=== PATIENT | female | born 1945 | race Caucasian/White ===

== ENCOUNTER 2016-09-17 11:01 | Day surgery (SDC) | payer OTHER ==
[~2016-09-17] VITALS: Ht 167.6 cm; Wt 50.0 kg
[~2016-09-17 11:01] MED LIST: ASPIRIN325 MG PO; MOTRIN600 MG PO
[2016-09-17 11:56] VITALS: BP 139/75
[2016-09-17 18:30] VITALS: BP 118/65
[2016-09-17 19:27] VITALS: BP 120/66
== END 2016-09-17 19:48 | disposition home or self-care (01) ==
LOC: SDC
DX: H33.42 Traction detachment of retina, left eye (principal); M47.22 Other spondylosis with radiculopathy, cervical region; Z79.891 Long term (current) use of opiate analgesic; Z80.0 Family history of malignant neoplasm of digestive organs
CPT/HCPCS: 84132; J0690; J1170; J2250; J2405; J3010; J3300; J7120

== ENCOUNTER 2017-09-01 16:52 | Inpatient (IN) | payer OTHER ==
[~2017-09-01] VITALS: Ht 167.6 cm; Wt 53.0 kg
[2017-09-01 17:49] LABS: HEMATOCRIT 32.3 % (36.0-46.0); HEMOGLOBIN 11.2 G/DL (11.9-15.5); MCH 30.1 PG (29.0-34.0); MCHC 34.7 G/DL (30.0-36.0); MCV 86.8 FL (83-99); PLATELET COUNT 263 K/uL (156-360); RBC DIS.WIDTH-CV 14.6 % (11.8-14.6); RBC DIS.WIDTH-SD 46.8 % (39-53); RED BLOOD COUNT 3.72 M/uL (3.80-5.20); WHITE BLOOD COUNT 10.6 K/uL (4.1-10.2)
[2017-09-01 18:05] LABS: CHLORIDE 96 mEq/L (99-109); SODIUM 135 mEq/L (136-147)
[2017-09-01 18:07] LABS: GLUCOSE 126 mg/dL (70-99)
[2017-09-01 18:11] LABS: CREATININE 2.2 mg/dL (0.6-1.3); GFR ESTIMATE (CALCULATED) 23 mL/min/
[2017-09-01 18:12] LABS: UREA NITROGEN (BUN) 47 mg/dL (9-23)
[2017-09-01 18:46] LABS: POTASSIUM 2.2 mEq/L (3.7-5.4)
[2017-09-01 20:39] LABS: TROP-I INTERPRETATION POSITIVE
[2017-09-01 20:44] LABS: TROPONIN-I 3.99 ng/mL (0.0-0.30)
[2017-09-01 21:14] LABS: APPEARANCE CLOUDY ((CLEAR)); BILIRUBIN NEGATIVE; BLOOD MODERATE; COLOR YELLOW ((YELLOW)); GLUCOSE (STRIP) NEGATIVE; KETONES NEGATIVE; LEUKOCYTES LARGE; NITRITE NEGATIVE; PROTEIN (STRIP) 30; SPECIFIC GRAVITY 1.011 (1.000-1.030); UROBILINOGEN 0.2 MG/DL (0.2-1.0)
[2017-09-01 21:29] LABS: BACTERIA RARE /HPF; EPITHELIAL CELLS 3+ /HPF; MUCUS 1+ /LPF; RED BLOOD CELLS 15-20 /HPF (0-5); UCUL ADDED? YES; WHITE BLOOD CELLS TNTC /HPF (0-5)
[2017-09-01 22:52] LABS: ALBUMIN 4.3 G/DL (3.2-4.8); ALKALINE PHOSPHATASE 57 IU/L (3-129); ALT (GPT) 36 IU/L (3-49); AST (GOT) 69 IU/L (2-34); TOTAL PROTEIN 7.3 G/DL (6.4-8.3)
[2017-09-01 22:56] LABS: CREATINE KINASE 431 IU/L (1-294); LACTATE DEHYDROGENASE 455 IU/L (20-246); SALICYLATE < 3.0 MG/DL (15-30); TOTAL BILIRUBIN 0.4 MG/DL (0.0-1.0); URIC ACID 10.3 mg/dL (3.1-9.2)
[2017-09-02 01:25] LABS: TROP-I INTERPRETATION POSITIVE
[2017-09-02 01:30] LABS: TROPONIN-I 3.21 ng/mL (0.0-0.30)
[2017-09-02 02:41] LABS: INTER. NORMALIZED RATIO 1.2
[2017-09-02 03:00] VITALS: BP 193/86
[2017-09-02 07:01] VITALS: BP 172/76
[2017-09-02 07:51] LABS: TROP-I INTERPRETATION POSITIVE; TROPONIN-I 2.89 ng/mL (0.0-0.30)
[2017-09-02 08:30] LABS: PHOSPHORUS 2.5 mg/dL (2.5-4.9)
[2017-09-02 08:43] LABS: INTACT PARATHYROID HORMONE 7 pg/mL (10-69)
[2017-09-02 08:55] LABS: THYROTROPIN (TSH) 1.2 MIU/L (0.4-5.5)
[2017-09-02 09:40] LABS: CHLORIDE 105 MEQ/L (99-109); GLUCOSE 96 mg/dL (70-99); MAGNESIUM 1.3 mg/dl (1.3-2.7); SODIUM 135 MEQ/L (136-147); UREA NITROGEN (BUN) 40 mg/dL (9-23)
[2017-09-02 09:46] LABS: CREATININE 1.5 MG/DL (0.6-1.3); GFR ESTIMATE (CALCULATED) 36 mL/min/; POTASSIUM 2.8 MEQ/L (3.7-5.4)
[2017-09-02 10:05] LABS: C-REACTIVE PROTEIN 2.3 MG/L (0-10)
[2017-09-02 10:57] VITALS: BP 131/71
[2017-09-02 11:07] LABS: URINE TOTAL PROTEIN 19 MG/DL (0-10)
[2017-09-02 11:18] LABS: A/G RATIO 1.5 (1.1-1.8); ALBUMIN 3.3 G/DL (3.4-5.0); GLOBULINS 2.2 G/DL (2.3-3.5); TOTAL PROTEIN 5.5 G/DL (6.4-8.2)
[2017-09-02 15:02] VITALS: BP 166/77
[2017-09-02 15:02] LABS: ALBUMIN 3.09 G/DL (3.6-4.9); ALPHA-1 GLOBULIN 0.31 G/DL (0.15-0.40); ALPHA-2 GLOBULIN 0.56 G/DL (0.45-0.85); BETA-GLOBULIN 0.68 G/DL (0.65-1.15); GAMMA-GLOBULIN 0.86 G/DL (0.60-1.35)
[2017-09-02 18:33] LABS: CHLORIDE 108 MEQ/L (99-109); CREATININE 1.6 MG/DL (0.6-1.3); GFR ESTIMATE (CALCULATED) 34 mL/min/; GLUCOSE 91 mg/dL (70-99); SODIUM 135 MEQ/L (136-147); UREA NITROGEN (BUN) 37 mg/dL (9-23)
[2017-09-02 19:16] VITALS: BP 170/80
[2017-09-03 01:36] LABS: INTER. NORMALIZED RATIO 1.1
[2017-09-03 01:38] LABS: PTT 57.2 SEC (25-37)
[2017-09-03 01:46] VITALS: BP 155/88
[2017-09-03 03:35] VITALS: BP 158/84
[2017-09-03 09:03] LABS: HEMATOCRIT 28.1 % (36.0-46.0); MCHC 31.7 G/DL (30.0-36.0); RBC DIS.WIDTH-CV 15.4 % (11.8-14.6); RBC DIS.WIDTH-SD 51.6 % (39-53); RED BLOOD COUNT 3.07 M/uL (3.80-5.20); WHITE BLOOD COUNT 6.9 K/uL (4.1-10.2)
[2017-09-03 09:10] VITALS: BP 185/98
[2017-09-03 09:12] LABS: HEMOGLOBIN 8.9 G/DL (11.9-15.5); MCV 91.5 FL (83-99)
[2017-09-03 09:35] LABS: INTACT PARATHYROID HORMONE 8 pg/mL (10-69)
[2017-09-03 09:56] LABS: PLAT.SUFFICIENCY ADEQUATE
[2017-09-03 09:59] LABS: PLATELET COUNT 154 K/uL (156-360)
[2017-09-03 10:08] LABS: ALBUMIN 3.5 G/DL (3.2-4.8); CHLORIDE 115 MEQ/L (99-109); CREATININE 1.5 MG/DL (0.6-1.3); GFR ESTIMATE (CALCULATED) 36 mL/min/; GLUCOSE 87 mg/dL (70-99); SODIUM 140 MEQ/L (136-147); UREA NITROGEN (BUN) 31 mg/dL (9-23)
[2017-09-03 10:09] LABS: PHOSPHORUS 1.5 mg/dL (2.5-4.9)
[2017-09-03 11:24] VITALS: BP 163/86
[2017-09-03 15:24] VITALS: BP 183/101
[2017-09-03 19:16] VITALS: BP 118/89; BP 143/99
[2017-09-04 03:17] VITALS: BP 177/97
[2017-09-04 07:14] LABS: HEMATOCRIT 28.4 % (36.0-46.0); HEMOGLOBIN 9.1 G/DL (11.9-15.5); MCH 29.3 PG (29.0-34.0); MCV 91.3 FL (83-99); PLATELET COUNT 163 K/uL (156-360); RBC DIS.WIDTH-CV 15.5 % (11.8-14.6); RBC DIS.WIDTH-SD 51.7 % (39-53); RED BLOOD COUNT 3.11 M/uL (3.80-5.20); WHITE BLOOD COUNT 7.7 K/uL (4.1-10.2)
[2017-09-04 07:41] LABS: ALBUMIN 3.3 G/DL (3.2-4.8); CHLORIDE 117 MEQ/L (99-109); CREATININE 1.4 MG/DL (0.6-1.3); GFR ESTIMATE (CALCULATED) 40 mL/min/; GLUCOSE 86 mg/dL (70-99); MAGNESIUM 1.1 mg/dl (1.3-2.7); POTASSIUM 3.4 MEQ/L (3.7-5.4); SODIUM 145 MEQ/L (136-147); UREA NITROGEN (BUN) 23 mg/dL (9-23)
[2017-09-04 07:48] LABS: INTER. NORMALIZED RATIO 1.2
[2017-09-04 08:01] LABS: FOLIC ACID (FOLATE) 7.9 NG/ML (5.0-22.0)
[2017-09-04 08:55] VITALS: BP 182/87
[2017-09-04 11:13] VITALS: BP 167/92
[2017-09-04 16:45] VITALS: BP 180/78
[2017-09-04 19:08] VITALS: BP 134/74
[2017-09-05] VITALS (7 sets, daily range): BP systolic 119–174; BP diastolic 63–90
[2017-09-05 07:00] LABS: ALBUMIN 2.9 G/DL (3.2-4.8); CHLORIDE 112 MEQ/L (99-109); CREATININE 1.4 MG/DL (0.6-1.3); GFR ESTIMATE (CALCULATED) 40 mL/min/; GLUCOSE 90 mg/dL (70-99); PHOSPHORUS 2.7 mg/dL (2.5-4.9); SODIUM 141 MEQ/L (136-147); UREA NITROGEN (BUN) 21 mg/dL (9-23)
[2017-09-05 07:01] LABS: MAGNESIUM 1.3 mg/dl (1.3-2.7); POTASSIUM 2.7 MEQ/L (3.7-5.4)
[2017-09-05 09:05] LABS: INTER. NORMALIZED RATIO 1.2
[2017-09-05 18:40] LABS: CHLORIDE 110 MEQ/L (99-109); CREATININE 1.5 MG/DL (0.6-1.3); GFR ESTIMATE (CALCULATED) 36 mL/min/; GLUCOSE 99 mg/dL (70-99); SODIUM 135 MEQ/L (136-147); UREA NITROGEN (BUN) 22 mg/dL (9-23)
[2017-09-05 18:42] LABS: MAGNESIUM 2.6 mg/dl (1.3-2.7); POTASSIUM 4.2 MEQ/L (3.7-5.4)
[2017-09-06 04:00] VITALS: BP 128/71
[2017-09-06 05:33] LABS: HEMATOCRIT 25.4 % (36.0-46.0); HEMOGLOBIN 8.1 G/DL (11.9-15.5); MCH 29.1 PG (29.0-34.0); MCHC 31.9 G/DL (30.0-36.0); MCV 91.4 FL (83-99); PLATELET COUNT 132 K/uL (156-360); RBC DIS.WIDTH-CV 16.1 % (11.8-14.6); RBC DIS.WIDTH-SD 54.2 % (39-53); RED BLOOD COUNT 2.78 M/uL (3.80-5.20); WHITE BLOOD COUNT 8.3 K/uL (4.1-10.2)
[2017-09-06 06:02] LABS: CHLORIDE 112 MEQ/L (99-109); CREATININE 1.6 MG/DL (0.6-1.3); GFR ESTIMATE (CALCULATED) 34 mL/min/; GLUCOSE 90 mg/dL (70-99); POTASSIUM 4.2 MEQ/L (3.7-5.4); SODIUM 136 MEQ/L (136-147); UREA NITROGEN (BUN) 23 mg/dL (9-23)
[2017-09-06 06:08] LABS: INTER. NORMALIZED RATIO 1.1; MAGNESIUM 2.2 mg/dl (1.3-2.7); PHOSPHORUS 1.5 mg/dL (2.5-4.9)
[2017-09-06 07:15] VITALS: BP 126/72
[2017-09-06 11:21] VITALS: BP 108/69
[2017-09-06 14:05] LABS: SODIUM 135 mEq/L (136-147)
[2017-09-06 14:07] LABS: CHLORIDE 113 mEq/L (99-109); GLUCOSE 102 mg/dL (70-99); POTASSIUM 5.2 mEq/L (3.7-5.4)
[2017-09-06 14:11] LABS: CREATININE 1.6 mg/dL (0.6-1.3); GFR ESTIMATE (CALCULATED) 34 mL/min/
[2017-09-06 14:12] LABS: UREA NITROGEN (BUN) 27 mg/dL (9-23)
[2017-09-06] MEDS ORDERED: LOPRESSOR25 MG PO (14:20)
[2017-09-06] MEDS ORDERED: ASPIR-LOW81 MG PO (14:20)
[2017-09-06] MEDS ORDERED: LIPITOR10 MG PO (14:21)
[2017-09-06] MEDS ORDERED: CEFTIN250 MG PO (14:24)
[2017-09-06] MEDS ORDERED: NABI650T PO (14:25)
[2017-09-06 15:23] VITALS: BP 131/71
== END 2017-09-06 17:16 | DRG 280 ==
LOC: EME 16:52 → 4EAST 09-02 01:16 → EDOF 09-02 01:16 → ENRESERV 09-02 01:31 → 4EAST 09-02 02:30
PROVIDERS: Emergency Medicine; Family Medicine; Hospitalist; Internal Medicine; Internal Medicine Medical Oncology; Internal Medicine Nephrology
DX: I21.4 Non-ST elevation (NSTEMI) myocardial infarction (principal); G93.41 Metabolic encephalopathy; N39.0 Urinary tract infection, site not specified; B96.20 Unspecified Escherichia coli [E. coli] as the cause of diseases classified elsewhere; B96.1 Klebsiella pneumoniae [K. pneumoniae] as the cause of diseases classified elsewhere; N17.9 Acute kidney failure, unspecified; E87.6 Hypokalemia; E83.42 Hypomagnesemia; E83.52 Hypercalcemia; E87.2 Acidosis; E86.0 Dehydration; D64.9 Anemia, unspecified; F05 Delirium due to known physiological condition; I12.9 Hypertensive chronic kidney disease with stage 1 through stage 4 chronic kidney disease, or unspecified chronic kidney disease; N18.3 Chronic kidney disease, stage 3 (moderate); E83.39 Other disorders of phosphorus metabolism; J32.0 Chronic maxillary sinusitis; R63.6 Underweight; Z68.1 Body mass index [BMI] 19.9 or less, adult; M19.90 Unspecified osteoarthritis, unspecified site; H33.22 Serous retinal detachment, left eye; R29.6 Repeated falls; G43.909 Migraine, unspecified, not intractable, without status migrainosus; M25.551 Pain in right hip; Z91.81 History of falling; Z79.82 Long term (current) use of aspirin; Z82.49 Family history of ischemic heart disease and other diseases of the circulatory system; Z98.41 Cataract extraction status, right eye
CPT/HCPCS: 70450; 71250; 72192; 73502; 76770; 80048; 80048 91; 80069; 80076; 81003; 82164 90; 82306; 82310; 82330; 82550; 82607; 82746; 82800; 82948; 83519 90; 83615; 83735; 83883 90; 83970; 84100; 84165; 84166; 84443; 84484; 84550; 85027; 85610; 85730; 86140; 87077; 87086 GA; 87186; 93005; 93306; 99281; 99285; A6214; G0480; J0630; J0744; J1200; J1630; J1644; J2430; J3010; J3475; J3480; J3486; J7030; J7040; J7050

== ENCOUNTER 2017-09-09 15:18 | Emergency (ER) | payer OTHER ==
[~2017-09-09] VITALS: Ht 167.6 cm; Wt 52.4 kg
[~2017-09-09 15:18] MED LIST changes: +ASPIR-LOW81 MG PO; +CEFTIN250 MG PO; +LIPITOR10 MG PO; +LOPRESSOR25 MG PO; +NABI650T PO
[2017-09-09 16:24] LABS: BASOPHIL (%) 0.6 % (0-1); EOSINOPHIL (%) 4.3 % (0-5); EOSINOPHIL COUNT 0.3 K/uL (0-0.3); HEMATOCRIT 27.3 % (36.0-46.0); HEMOGLOBIN 9.1 G/DL (11.9-15.5); IMMATURE GRANULOCYTE (%) 0.4 % (0.0-0.7); LYMPHOCYTE (%) 18.1 % (15-42); LYMPHOCYTE COUNT 1.3 K/uL (1.0-2.8); MCH 30.1 PG (29.0-34.0); MCHC 33.3 G/DL (30.0-36.0); MCV 90.4 FL (83-99); MONOCYTE (%) 7.7 % (3-12); MONOCYTE COUNT 0.6 K/uL (0-0.8); NEUTROPHIL (%) 68.9 % (45-76); PLATELET COUNT 149 K/uL (156-360); RBC DIS.WIDTH-SD 52.9 % (39-53); RED BLOOD COUNT 3.02 M/uL (3.80-5.20); WHITE BLOOD COUNT 7.2 K/uL (4.1-10.2)
[2017-09-09 16:35] LABS: ALBUMIN 3.6 g/dL (3.2-4.8); CHLORIDE 109 mEq/L (99-109); POTASSIUM 4.3 mEq/L (3.7-5.4); SODIUM 137 mEq/L (136-147)
[2017-09-09 16:37] LABS: GLUCOSE 88 mg/dL (70-99)
[2017-09-09 16:39] LABS: TOTAL BILIRUBIN 0.1 mg/dL (0.0-1.0)
[2017-09-09 16:41] LABS: ALKALINE PHOSPHATASE 74 IU/L (3-129); CREATININE 1.6 mg/dL (0.6-1.3); GFR ESTIMATE (CALCULATED) 34 mL/min/
[2017-09-09 16:42] LABS: UREA NITROGEN (BUN) 21 mg/dL (9-23)
[2017-09-09 16:43] LABS: AST (GOT) 28 IU/L (2-34)
[2017-09-09 16:44] LABS: ALT (GPT) 24 IU/L (3-49)
[2017-09-09 16:46] LABS: TROP-I INTERPRETATION NEGATIVE; TROPONIN-I 0.03 ng/mL (0.0-0.30)
[2017-09-09] MEDS ORDERED: VITAMIN D31000 UNIT PO (19:05)
[2017-09-09] MEDS ORDERED: CALCIUM 500 MG1 EACH PO (19:14)
[2017-09-09 21:19] VITALS: BP 166/92
== END 2017-09-09 21:20 ==
LOC: EME 15:18
PROVIDERS: Emergency Medicine
DX: E83.51 Hypocalcemia (principal); R10.13 Epigastric pain; R60.0 Localized edema; R07.9 Chest pain, unspecified; J90 Pleural effusion, not elsewhere classified; J98.11 Atelectasis; M43.17 Spondylolisthesis, lumbosacral region; M43.06 Spondylolysis, lumbar region; M41.84 Other forms of scoliosis, thoracic region; I10 Essential (primary) hypertension; I25.2 Old myocardial infarction; Z88.0 Allergy status to penicillin; Z87.891 Personal history of nicotine dependence
CPT/HCPCS: 71045; 74176; 80053; 84484; 85025 91; 86850; 86900; 86901; 93005